=== PATIENT | female | born 1950 | race Native Hawaiian/Other Pacific Islander ===

== ENCOUNTER 2017-10-16 15:17 | Emergency (ER) | payer BC ==
[~2017-10-16] VITALS: Ht 165.1 cm; Wt 83.0 kg
[2017-10-16] MEDS ORDERED: GLIM2TAB PO (15:29)
[2017-10-16] MEDS ORDERED: LEVO0.1224 PO (15:29)
[2017-10-16] MEDS ORDERED: LISITAB PO (15:30)
[2017-10-16 18:21] LABS: PLATELET COUNT 312 K/uL (152-353)
[2017-10-16 18:27] LABS: POTASSIUM 4.3 mmol/L (3.6-5.2)
== END 2017-10-16 19:30 | disposition home or self-care (01) ==
LOC: ED 15:17
PROVIDERS: Specialist
DX: S22.41XA Multiple fractures of ribs, right side, initial encounter for closed fracture (principal); W01.198A Fall on same level from slipping, tripping and stumbling with subsequent striking against other object, initial encounter; Y92.098 Other place in other non-institutional residence as the place of occurrence of the external cause
CPT/HCPCS: 36600; 80048; 81000; 82805; 85027; 96372; 99283; J2175; J2550

== ENCOUNTER 2018-03-25 09:49 | Outpatient (CLI) | payer BC ==
[~2018-03-25 09:49] MED LIST: GLIM2TAB PO; LEVO0.1224 PO; LISITAB PO
== END 2018-03-25 19:50 | disposition home or self-care (01) ==
LOC: US 09:49
DX: Z12.31 Encounter for screening mammogram for malignant neoplasm of breast (principal); Z13.820 Encounter for screening for osteoporosis; Z13.6 Encounter for screening for cardiovascular disorders; N95.8 Other specified menopausal and perimenopausal disorders; I70.0 Atherosclerosis of aorta

== ENCOUNTER 2019-05-26 08:33 | Outpatient (CLI) | payer BC | END 2019-05-26 19:45 | disposition home or self-care (01) | LOC: MAMMO 08:33 | DX: Z12.31 Encounter for screening mammogram for malignant neoplasm of breast (principal) ==

== ENCOUNTER 2020-05-28 08:58 | Outpatient (CLI) | payer BC | END 2020-05-28 23:29 | disposition home or self-care (01) | LOC: MAMMO 08:58 | DX: Z12.31 Encounter for screening mammogram for malignant neoplasm of breast (principal); Z13.820 Encounter for screening for osteoporosis; N95.8 Other specified menopausal and perimenopausal disorders ==

== ENCOUNTER 2020-06-08 08:47 | Outpatient (CLI) | payer BC | END 2020-06-08 18:58 | disposition home or self-care (01) | LOC: US 08:47 | DX: R92.8 Other abnormal and inconclusive findings on diagnostic imaging of breast (principal) ==

== ENCOUNTER 2021-08-09 11:52 | Outpatient (CLI) | payer OTHER ==
[2021-08-09 12:05] LABS: PLATELET COUNT 195 K/uL (152-353)
[2021-08-09 12:26] LABS: POTASSIUM 3.6 mmol/L (3.6-5.2)
== END 2021-08-09 19:02 | disposition home or self-care (01) ==
LOC: LABW 11:52
PROVIDERS: ATTEND Internal Medicine Medical Oncology
DX: C50.412 Malignant neoplasm of upper-outer quadrant of left female breast (principal); E55.9 Vitamin D deficiency, unspecified; I10 Essential (primary) hypertension
CPT/HCPCS: 36415; 80053; 82306; 85027

== ENCOUNTER 2021-10-11 11:05 | Outpatient (CLI) | payer OTHER | END 2021-10-11 19:58 | disposition home or self-care (01) | LOC: RAD 11:05 | PROVIDERS: ATTEND Internal Medicine | DX: M19.042 Primary osteoarthritis, left hand (principal); M19.041 Primary osteoarthritis, right hand; M25.532 Pain in left wrist; M25.531 Pain in right wrist ==

== ENCOUNTER 2022-03-07 09:47 | Outpatient (CLI) | payer OTHER ==
[2022-03-07 10:05] LABS: PLATELET COUNT 207 K/uL (152-353)
[2022-03-07 10:17] LABS: POTASSIUM 3.8 mmol/L (3.6-5.2)
== END 2022-03-07 19:59 | disposition home or self-care (01) ==
LOC: LABW 09:47
PROVIDERS: ATTEND Physician Assistant
DX: C50.412 Malignant neoplasm of upper-outer quadrant of left female breast (principal); E55.9 Vitamin D deficiency, unspecified; I10 Essential (primary) hypertension
CPT/HCPCS: 36415; 80053; 82306; 85027

== ENCOUNTER 2022-05-01 09:14 | Outpatient (CLI) | payer OTHER ==
[2022-05-01 09:52] LABS: PLATELET COUNT 213 K/uL (152-353)
[2022-05-01 10:23] LABS: POTASSIUM 3.7 mmol/L (3.6-5.2)
== END 2022-05-01 19:29 | disposition home or self-care (01) ==
LOC: LABW 09:14
PROVIDERS: ATTEND Internal Medicine Nephrology
DX: E03.8 Other specified hypothyroidism (principal); E11.9 Type 2 diabetes mellitus without complications; E78.49 Other hyperlipidemia; M10.9 Gout, unspecified; N18.31 Chronic kidney disease, stage 3a; N18.32 Chronic kidney disease, stage 3b; Z87.442 Personal history of urinary calculi; Z85.3 Personal history of malignant neoplasm of breast; I12.9 Hypertensive chronic kidney disease with stage 1 through stage 4 chronic kidney disease, or unspecified chronic kidney disease; Z08 Encounter for follow-up examination after completed treatment for malignant neoplasm; Z09 Encounter for follow-up examination after completed treatment for conditions other than malignant neoplasm
CPT/HCPCS: 80069; 81002; 82306; 82570; 83970; 84156; 85027

== ENCOUNTER 2022-06-06 09:42 | Outpatient (CLI) | payer OTHER ==
[2022-06-06 10:06] LABS: PLATELET COUNT 205 K/uL (152-353)
[2022-06-06 10:21] LABS: POTASSIUM 4.4 mmol/L (3.6-5.2)
== END 2022-06-06 19:03 | disposition home or self-care (01) ==
LOC: LABW 09:42
PROVIDERS: ATTEND Internal Medicine Hematology & Oncology
DX: C50.412 Malignant neoplasm of upper-outer quadrant of left female breast (principal); E55.9 Vitamin D deficiency, unspecified; I10 Essential (primary) hypertension
CPT/HCPCS: 36415; 80053; 85027

== ENCOUNTER 2022-10-09 09:09 | Outpatient (CLI) | payer OTHER ==
[2022-10-09 10:30] LABS: PLATELET COUNT 226 K/uL (152-353)
[2022-10-09 10:50] LABS: POTASSIUM 4.2 mmol/L (3.6-5.2)
== END 2022-10-09 19:23 | disposition home or self-care (01) ==
LOC: LABW 09:09
PROVIDERS: ATTEND Internal Medicine Hematology & Oncology
DX: C50.412 Malignant neoplasm of upper-outer quadrant of left female breast (principal); E55.9 Vitamin D deficiency, unspecified; I10 Essential (primary) hypertension
CPT/HCPCS: 36415; 80053; 82306; 85027

== ENCOUNTER 2022-10-27 08:01 | Outpatient (CLI) | payer OTHER ==
[2022-10-27 08:29] LABS: PLATELET COUNT 200 K/uL (152-353)
[2022-10-27 08:38] LABS: POTASSIUM 4.4 mmol/L (3.6-5.2)
== END 2022-10-27 18:55 | disposition home or self-care (01) ==
LOC: LABW 08:01
PROVIDERS: ATTEND Internal Medicine Nephrology
DX: E03.8 Other specified hypothyroidism (principal); E11.9 Type 2 diabetes mellitus without complications; E78.49 Other hyperlipidemia; M10.9 Gout, unspecified; Z87.442 Personal history of urinary calculi; N18.32 Chronic kidney disease, stage 3b; Z85.3 Personal history of malignant neoplasm of breast; I12.9 Hypertensive chronic kidney disease with stage 1 through stage 4 chronic kidney disease, or unspecified chronic kidney disease; Z08 Encounter for follow-up examination after completed treatment for malignant neoplasm; Z09 Encounter for follow-up examination after completed treatment for conditions other than malignant neoplasm
CPT/HCPCS: 36415; 80069; 81002; 82306; 82570; 83970; 84156; 85027

== ENCOUNTER 2023-02-09 08:06 | Outpatient (CLI) | payer OTHER ==
[2023-02-09 08:32] LABS: PLATELET COUNT 197 K/uL (152-353); POTASSIUM 3.9 mmol/L (3.6-5.2)
== END 2023-02-09 18:49 | disposition home or self-care (01) ==
LOC: LABW 08:06
PROVIDERS: ATTEND Internal Medicine Hematology & Oncology
DX: C50.412 Malignant neoplasm of upper-outer quadrant of left female breast (principal); M85.88 Other specified disorders of bone density and structure, other site; I10 Essential (primary) hypertension; E55.9 Vitamin D deficiency, unspecified
CPT/HCPCS: 36415; 80053; 85027

== ENCOUNTER 2023-05-04 10:18 | Outpatient (CLI) | payer OTHER ==
[2023-05-04 10:50] LABS: PLATELET COUNT 220 K/uL (152-353)
[2023-05-04 10:54] LABS: POTASSIUM 3.7 mmol/L (3.6-5.2)
== END 2023-05-04 20:26 | disposition home or self-care (01) ==
LOC: LABW 10:18
PROVIDERS: ATTEND Internal Medicine Nephrology
DX: E03.8 Other specified hypothyroidism (principal); E11.9 Type 2 diabetes mellitus without complications; E78.49 Other hyperlipidemia; M10.9 Gout, unspecified; N18.31 Chronic kidney disease, stage 3a
CPT/HCPCS: 36415; 80069; 81002; 82043; 82306; 83735; 83970; 84156; 85027

== ENCOUNTER 2023-05-15 07:55 | Outpatient (CLI) | payer OTHER ==
[2023-05-15 08:14] LABS: PLATELET COUNT 244 K/uL (152-353)
[2023-05-15 08:21] LABS: POTASSIUM 3.8 mmol/L (3.6-5.2)
== END 2023-05-15 19:10 | disposition home or self-care (01) ==
LOC: LABW 07:55
PROVIDERS: ATTEND Nurse Practitioner Family
DX: C50.412 Malignant neoplasm of upper-outer quadrant of left female breast (principal); M85.88 Other specified disorders of bone density and structure, other site; I10 Essential (primary) hypertension; E55.9 Vitamin D deficiency, unspecified
CPT/HCPCS: 36415; 80053; 82306; 85027